=== PATIENT | female | born 1980 | race African-American/Black ===

== ENCOUNTER 2020-03-26 04:45 | Emergency (ER) | payer SELFPAY ==
[~2020-03-26] VITALS: Ht 175.3 cm; Wt 124.5 kg
--- NOTE | 2020-03-26 05:05 | NUR ---
PATIENT AMBULATED TO ROOM WITHOUT ASSISTANCE, UNWILLING TO COOPERATE WITH LAB PERSONNEL AND STATES THAT SHE IS HERE FOR HER "NECK." DOES NOT ELABORAT BEYOND THAT AT THIS TIME. CALL FARR WITHIN REACH, MARIZA DELVALLE, WILL CONTINUE TO MONITOR.
[2020-03-26 05:20] LABS: BASOPHILS % (AUTO) 1 % (0-1); EOSINOPHILS % (AUTO) 1 % (1-7); LYMPHOCYTES % (AUTO) 17 % (22-44); MEAN CORPUSCULAR HEMOGLOBIN 23.8 pg (27.0-34.8); MEAN CORPUSCULAR HGB CONC 32.7 g/dL (32.4-35.8); MEAN PLATELET VOLUME 8.3 fL (7.4-10.4); MONOCYTES % (AUTO) 6 % (2-9); NEUTROPHILS % (AUTO) 76 % (42-75); PLATELET COUNT 412 x10^3/uL (130-400); RED CELL DISTRIBUTION WIDTH 18.6 % (9.6-15.2)
[2020-03-26 05:30] LABS: ALBUMIN 3.2 g/dL (3.4-5.0); ANION GAP 3 mmol/L (5-15); CALCIUM 8.7 mg/dL (8.5-10.1); CHLORIDE 109 mmol/L (98-107)
[2020-03-26 05:31] LABS: CREATININE 0.83 mg/dL (0.55-1.02)
[2020-03-26 05:47] LABS: MD NO
[2020-03-26 06:40] VITALS: BP 138/82
== END 2020-03-26 06:44 | disposition home or self-care (01) ==
LOC: ED 06:00
DX: D64.9 Anemia, unspecified (principal); Z59.0 Homelessness
CPT/HCPCS: 36415; 80048; 82040; 85025; 99283